=== PATIENT | female | born 1935 | race Caucasian/White ===

== ENCOUNTER → 2018-05-27 | Outpatient (CLI) | payer MEDICARE, OTHER ==
[~2018-05-27] MED LIST: ASPIR-LOW81 MG PO; ASPIRIN E.C. 8181 MG PO; COZAAR 50MG50 MG/TAB PO; EPA FISH OIL1000 MG PO; GEMCOR600 MG PO; HCTZ 25MG25 MG PO; HCTZ12.5TAB PO; INDERAL40 MG PO; LOW DOSE ASPIRI81 MG PO; LUTEIN PO; MINIPRESS; ONE DAILY1 TA1 PO; PRILOSEC 20MG20 MG PO; SYNTHROID0.05 MG/TA PO; ZOCOR 20MG20 MG PO
== END ==
LOC: MC.RAD 08:57
DX: Z12.31 Encounter for screening mammogram for malignant neoplasm of breast (principal)

== ENCOUNTER → 2021-09-05 | Outpatient (CLI) | payer MEDICARE, OTHER | LOC: ZCOL.LAB 17:25 | DX: L97.519 Non-pressure chronic ulcer of other part of right foot with unspecified severity (principal) ==

== ENCOUNTER → 2021-09-05 | Outpatient (CLI) | payer MEDICARE, OTHER | LOC: ZCOL.LAB 17:23 | DX: L97.119 Non-pressure chronic ulcer of right thigh with unspecified severity (principal) ==

== ENCOUNTER → 2022-04-19 | Outpatient (CLI) | payer MEDICARE, OTHER | LOC: COL.RAD 09:53 | DX: I71.4 Abdominal aortic aneurysm, without rupture (principal); K43.9 Ventral hernia without obstruction or gangrene | CPT/HCPCS: Q9967 ==

== ENCOUNTER 2023-05-09 17:30 | Inpatient (IN) | payer MEDICARE, OTHER ==
[~2023-05-09] VITALS: Ht 162.5 cm; Wt 79.8 kg
[~2023-05-09 17:30] MED LIST changes: +ALDACTONE 25MG25 M1 PO; +DIOVAN320 MG PO; +EPA FISH OIL1 SGL PO; -EPA FISH OIL1000 MG PO; -HCTZ12.5TAB PO; -LUTEIN PO; +LUTEIN20 M1 PO; +MASON NATURAL2000 IU PO; +MICROZIDE12.5 MG PO; +NORVASC 5MG5 MG/TAB PO; -ONE DAILY1 TA1 PO; +ONE-A-DAY ESSE1 EACH PO; +SYNTHROID0.088 MG/T PO; +ULTRAM 50MG TAB50 MG PO; +ZYLOPRIM 100MG100 MG PO; +[UNRECOGNIZED DRUG - OTHER] PO
[2023-05-09 18:18] LABS: URINE APPEARANCE Cloudy (CLEAR/HAZY); URINE BLOOD TRACE-INTACT (NEGATIVE); URINE COLOR Amber (YELLOW); URINE GLUCOSE Negative (NEGATIVE); URINE KETONE TRACE (NEGATIVE); URINE NITRATE Negative (NEGATIVE); URINE PROTEIN(semi-quant) 1+ (NEGATIVE)
[2023-05-09 18:20] LABS: MUCOUS Present (NOT PRESENT); SQUAMOUS EPITHELIAL 0-2 /hpf (0-10); URINE BACTERIA Many /hpf (NONE SEEN); URINE RBC 0-2 /hpf (0-2)
[2023-05-09] MEDS ORDERED: LASIX 40MG TABL40 MG PO (18:36)
[2023-05-09] MEDS ORDERED: COLACE 100100 MG/CAP PO (18:37)
[2023-05-09] MEDS ORDERED: DULCOLAX TAB5 MG PO (18:38)
[2023-05-09] MEDS ORDERED: ANTI-DIARRHEAL2 MG PO (18:39)
[2023-05-09 19:42] LABS: HEMATOCRIT 25.3 % (37.0-47.0); HEMOGLOBIN 8.1 g/dl (12.5-16.0); MEAN CELL VOLUME 108 fl (80.0-100.0); MEAN CORPUSCULAR HEMOGLOBIN 34 pg (27-31); MEAN CORPUSCULAR HGB CONC 32 g/dl (33.0-37.0); MEAN PLATELET VOLUME 10.6 fl (7.4-10.4); PLATELET COUNT 75 K/mm3 (130-400); RED BLOOD COUNT 2.35 M/mm3 (4.10-5.30)
[2023-05-09 19:52] LABS: BAND 18 % (0-10); LYMPHOCYTE 1 % (20.0-51.0); METAMYELOCYTE 2 % (0-0); NEUTROPHILS 77 % (42.0-75.2); PLATELET ESTIMATE DECREASED (NORMAL)
[2023-05-09 19:53] LABS: ANISOCYTOSIS 2+
[2023-05-09 20:05] LABS: ALBUMIN 1.9 gm/dL (3.4-4.8); BILIRUBIN,TOTAL 2.1 mg/dL (0.2-1.2); CALCIUM 8.1 mg/dL (8.4-10.2); CREATININE, serum 2.17 mg/dL (0.57-1.11); POTASSIUM 3.8 mmol/L (3.5-4.5); TOTAL PROTEIN 6.4 gm/dL (6.2-8.1)
[2023-05-09 20:13] LABS: ARTERIAL BLD GAS O2 SATURATION 96.9 % (92-100); ARTERIAL BLD GAS TCO2 CT 24.4; ARTERIAL BLOOD GAS BASE EXCESS 0.4 (-2-2); ARTERIAL BLOOD GAS HCO3 23.4 meq/L (22-26); ARTERIAL BLOOD GAS PCO2 31.6 mmHg (35-45); ARTERIAL BLOOD GAS PO2 86.9 mmHg (80-100); ARTERIAL BLOOD GAS pH 7.49 (7.35-7.45)
--- NOTE | 2023-05-09 23:05 | NUR ---
PATIENT ARRIVED TO MEDICAL FLOOR FROM ED VIA BED.
[2023-05-09 23:29] VITALS: BP 97/83; PULSE 107; TEMP 100.3
--- NOTE | 2023-05-09 23:29 | NUR ---
PATIENT IS RESTING IN BED WITH EYES OPEN. PATIENT IS NOT ALERT AND ORIENTED. ADMISSION INTAKE COULD NOT BE OBTAINED RELATED TO AMS. ADMISSION ASSESSMENT COMPLETED. DIALYSIS CATH NOTED TO RIGHT CHEST. CDI. IV TO LEFT WRIST. CDI. REDNESS AND ECCYMOSIS NOTED TO SACRAL AREA, NO OPEN AREAS NOTED. PITTING +3 EDEMA NOTED TO BLE AND FEET. BOTH ANKLES HAVE SOME CRACKING NOTED. THERE ARE FOAM PADS TO BOTH ANKLES. CALL LIGHT WITHIN REACH.
[2023-05-10] VITALS (13 sets, daily range): BP systolic 107–135; BP diastolic 56–91; PULSE 92–117; TEMP 97.3–98.8
--- NOTE | 2023-05-10 00:21 | NUR ---
MOSS INSERTED PER PHYSICIAN ORDERS. URINE IS DARK MOHAN IN COLOR. PATIENT TOLERATED PROCEDURE WELL. 24 HOUR URINE SAMPLE STARTED AT 0020.
--- NOTE | 2023-05-10 04:32 | NUR ---
PATIENT IS STILL NOT ALERT OR ORIENTED. RESTING IN BED WITH EYES OPEN. VSS. MOSS DRAINING DEPENDENTLY WITH DARK MOHAN URINE NOTED. SCDS ON. CALL LIGHT WITHIN REACH.
[2023-05-10 06:47] LABS: MEAN CELL VOLUME 105 fl (80.0-100.0); MEAN CORPUSCULAR HGB CONC 33 g/dl (33.0-37.0); PLATELET COUNT 81 K/mm3 (130-400); RED BLOOD COUNT 2.25 M/mm3 (4.10-5.30); REDCELL DISTRIBUTION WIDTH-CV 17.5 % (11.5-14.5)
[2023-05-10 06:54] LABS: HEMATOCRIT 23.7 % (37.0-47.0); HEMOGLOBIN 7.9 g/dl (12.5-16.0); MEAN CORPUSCULAR HEMOGLOBIN 35 pg (27-31)
[2023-05-10 06:59] LABS: ALBUMIN 1.6 gm/dL (3.4-4.8); BILIRUBIN,TOTAL 1.9 mg/dL (0.2-1.2); CALCIUM 7.7 mg/dL (8.4-10.2); CREATININE, serum 2.13 mg/dL (0.57-1.11); TOTAL PROTEIN 5.5 gm/dL (6.2-8.1)
[2023-05-10 07:55] LABS: BAND 20 % (0-10); LYMPHOCYTE 1 % (20.0-51.0); NEUTROPHILS 78 % (42.0-75.2)
[2023-05-10 07:59] LABS: ANISOCYTOSIS 1+; PLATELET ESTIMATE DECREASED (NORMAL)
--- NOTE | 2023-05-10 11:04 | NUR ---
magnaflux operator met with Patient at [facility] to conduct Care Managmeny Assessment and discuss discharge planning. Patient presented with eyes open and was unresponsive to prompts from SW. LISBETH contacted Patient's , Jonah to complete assessment. Jonah reports that Patient continues to be established with PCP Dr. Martinez and [facility] and [facility] for insurance. Patient recently discharged from SNF with [facility]. [facility] was not fully established prior to admission. Jonah reports that Patient was ambulating with Walker when discharged from AV and was told that Patient had a fever. Jonah reports that Patient returned home and declined with ADL/IADLs as the fever continued. Jonah states that he intends Patient to recover with treatment for UTI and discharge home with HH through [facility]. Jonah states that if Patient is recommended for SNF, he would like Patient to return to [facility]. Discharge Plan: Pending medical and PT/OT recommendations.
[2023-05-10 11:27] LABS: COLLECTION METHOD CATHETER
--- NOTE | 2023-05-10 12:04 | NUR ---
PATIENT GRUNTING IN BED UPON ENTERING ROOM. PATIENT IS LAYING IN BED AWAKE BUT COMPLETELY DISORIENTED AND UNABLE TO ANSWER ANY QUESTIONS OR FOLLOW COMMANDS. MORNING MEDICATIONS HELD DUE TO PATIENTS INABILITY TO SWALLOW PILLS AT THIS TIME. MOSS CATHETER DRAINING CLOUDY YELLOW URINE, [address] BED ALARMS IN PLACE. PATIENTS FAMILY HAS BEEN UPDATED ON POC VIA PHONE CALL. WILL CONTINUE TO MONITOR.
[2023-05-11] VITALS (12 sets, daily range): BP systolic 116–151; BP diastolic 52–90; PULSE 112–120; TEMP 98–98.7
[2023-05-11 01:42] LABS: URINE TOTAL VOLUME - 24 HRS 350 mL/24 hr
[2023-05-11 01:43] LABS: PROTEIN, TOTAL URINE random 55 mg/dL
--- NOTE | 2023-05-11 08:11 | NUR ---
ASSESSMENT COMPLETE FOR SENIOR MANUFACTURING TECHNICIAN. PT MOANING IF SHE WAS IN SEVERE PAIN. PROVIDER CALLED ABOUT PT'S PAIN AND ELEVATED HR. 0.25MG DILAUDID ORDERED AND GIVEN. PAIN MEDICATION DIDN'T SEEM TO HELP MUCH, HOWEVER DO TO PT'S AMS AND VITAL SIGNS, DECISION MADE TO HOLD STRONGER PAIN MEDS AT THIS TIME. PT HAD SOME INCONTINENCE OF BOWEL A COUPLE OF TIME THIS SHIFT. PT ALSO TRIED TO REMOVE HER CATHETER AND WAS CONSTANTLY REMOVING HER NASAL CANNULA. PT CHECKED ON OFTEN. 24 HR URINE COMPLETED AND SENT TO LAB. CALL LIGHT WITHIN REACH.
[2023-05-11 08:13] LABS: MEAN CELL VOLUME 104 fl (80.0-100.0); MEAN CORPUSCULAR HGB CONC 34 g/dl (33.0-37.0); MEAN PLATELET VOLUME 11.3 fl (7.4-10.4); PLATELET COUNT 88 K/mm3 (130-400); RED BLOOD COUNT 2.38 M/mm3 (4.10-5.30); REDCELL DISTRIBUTION WIDTH-CV 17.4 % (11.5-14.5)
[2023-05-11 08:24] LABS: HEMATOCRIT 24.7 % (37.0-47.0); HEMOGLOBIN 8.3 g/dl (12.5-16.0); MEAN CORPUSCULAR HEMOGLOBIN 35 pg (27-31)
[2023-05-11 08:25] LABS: CREATININE, serum 1.41 mg/dL (0.57-1.11)
[2023-05-11 08:26] LABS: ALBUMIN 1.5 gm/dL (3.4-4.8); CALCIUM 7.8 mg/dL (8.4-10.2); CREATININE, serum 1.43 mg/dL (0.57-1.11); POTASSIUM 3.9 mmol/L (3.5-4.5)
[2023-05-11 08:52] LABS: ANISOCYTOSIS 1+; BAND 7 % (0-10); EOSINOPHIL 1 % (0-4); LYMPHOCYTE 2 % (20.0-51.0); NEUTROPHILS 87 % (42.0-75.2); PLATELET ESTIMATE DECREASED (NORMAL)
--- NOTE | 2023-05-11 09:20 | NUR ---
PATIENT LAYING IN BED MOANING IN PAIN AND GRABBING L HIP. MORNING MEDICTIONS GIVEN PER eMAR. UNABLE TO GIVE ORAL MEDICATIONS AND FOOD/WATER DUE TO PATIENTS INABILITY TO FOLLOW COMMANDS AT THIS TIME. PATIENT IS RESPONDING TO QUESTIONS BUT NOT ORIENTED AT THIS TIME. ATTEMPTED TO MAKE PATIENT MORE COMFORTABLE BY REPOSITIONING. THIS RN SPOKE TO THE PATIENTS DAUGHTER ON THE PHONE THIS MORNING AND SHE NOTIFIED ME THAT PATIENT HAD FALLEN IN FEBRUARY AND HER HIP PAIN HAS BEEN WORSE SINCE THEN. SANDRA HEALY NOTIFIED. PATIENT HAS BED ALARMS IN PLACE. WILL CONTINUE TO MONITOR.
[2023-05-12] VITALS (14 sets, daily range): BP systolic 98–155; BP diastolic 36–86; PULSE 96–147; TEMP 97.5–98.8; O2SAT 67–92
--- NOTE | 2023-05-12 05:00 | NUR ---
ASSESSMENT COMPLETE FOR CHIEF ACCOUNTING OFFICER. PT DIDN'T MOAN VERY MUCH TONIGHT. WHEN ASKED IF SHE WAS IN PAIN, PT WOULD SAY NO (ONE OF ONLY THREE THINGS SHE ANSWERED ALL NIGHT. PT PULLED OUT HER IV AT THE BEGINNING OF THE SHIFT. NEW IV PLACED TO UPPER RIGHT INNER ARM. BRISA COVERING SITE TO PROTECT. PT ALSO CONTINUED PULLING OFF HER OXYMASK, PULLING OFF HER GOWN AND PULLING AT HER MOSS CATHETER OFTEN. PT CHECKED ON OFTEN TO ENSURE PT HAS HER OXYMASK ON (OR RE-PUT ON), REMIND HER NOT TO PULL OUT HER MOSS, ETC. CALL LIGHT WITHIN REACH.
[2023-05-12 07:31] LABS: MEAN CELL VOLUME 106 fl (80.0-100.0); MEAN CORPUSCULAR HGB CONC 33 g/dl (33.0-37.0); MEAN PLATELET VOLUME 11.2 fl (7.4-10.4); PLATELET COUNT 105 K/mm3 (130-400); RED BLOOD COUNT 2.56 M/mm3 (4.10-5.30); REDCELL DISTRIBUTION WIDTH-CV 17.7 % (11.5-14.5)
[2023-05-12 07:42] LABS: HEMATOCRIT 27.1 % (37.0-47.0); HEMOGLOBIN 8.9 g/dl (12.5-16.0); MEAN CORPUSCULAR HEMOGLOBIN 35 pg (27-31)
[2023-05-12 07:55] LABS: ALBUMIN 1.6 gm/dL (3.4-4.8); CREATININE, serum 1.87 mg/dL (0.57-1.11); PHOSPHOROUS 3.5 mg/dL (2.3-4.7)
[2023-05-12 08:57] LABS: BAND 6 % (0-10)
[2023-05-12 09:00] LABS: NEUTROPHILS 79 % (42.0-75.2)
[2023-05-12 09:01] LABS: ANISOCYTOSIS 2+; LYMPHOCYTE 9 % (20.0-51.0); PLATELET ESTIMATE DECREASED (NORMAL)
--- NOTE | 2023-05-12 09:12 | NUR ---
Patient in pleasant mood this morning. Shift assessment complete, skin has scattered bruising of various sizes. Coccyx reddened, but blanchable. Guaze dressing to right upper chest CDI. Aguilera catheter intact and draining tea colored/clear urine at this time. Oxygen mask placed back on patient due to patient taking it off. Mouth noted to be dry and cracking with a darkened patch on the tongue, oral care provided with water and sponge. Mouth moisterizure applied. Patient unable to follow swallow command at this time, and patient did not tolerate HOB being elevated enough to drink water/take meds safely. Patient grimaced and yelled out in pain when HOB attempted to elevate. PRN Dilaudid administered. Patient noted to be reaching out into air. This nurse asked if patient sees something and patient stated, "a bird." Patient resting in bed at this time with fall precautions in place and call light in reach. Heel protectors on. All needs met at this time, staff will continue repositioning frequently.
--- NOTE | 2023-05-12 11:23 | NUR ---
Patient improved since this morning. Dilaudid effective in pain management. Patient tolerated bed bath and repositioning well. Still unable to tolerate sips of water without coughing, oral care provided. TRI Kuhn updated on patient condition. Patient alert to self, city, month, and situation, required orientation to day and location of hospital. Patient able to remember 's name today. Patient kept stating she sees bugs everywhere. New lidocain patches placed on lower back and left hip. Still awaiting ST consult at this time. Patient currently resting in bed with HOB elevated and fall precautions in place. at bedside.
--- NOTE | 2023-05-12 14:55 | NUR ---
Patient continues to be alert to self, situation, and month. Sips of Nepro supplement shake attempted per TRI Kuhn suggestion. HOB elevated 90 degrees. Patient unable to bring fluid up through straw, and unable to drink from cup due to not following cues. Patient coughed with minimal fluid amount reaching mouth. Tolerated applesauce well with no coughing, but declined more bites after 3-4 spoonfuls of applesauce. PRN Dilaudid administered again to manage pain after noting facial grimacing. Patient curretly in bed with HOB elevated 45 degrees and fall precautions in place.
--- NOTE | 2023-05-12 23:45 | NUR ---
ASSESSMENT COMPLETE FOR ORACLE APPLICATION ARCHITECT. PT SEEN POINTING AT SOMETHING IN THE DISTANCE. PT STATED, "SHE'S NOT TURN THAT OFF!" I ASKED THE PT, "SHE'S NOT TURNING WHAT OFF? PT STATED, "THAT FANCY STUFF." PT PULLED OFF A COUPLE OF HER TELE LEADS. LEADS REPLACED. PT CONTINUED TO TAKE OFF HER O2 MASK. PT CHECKED ON OFTEN TO ENSURE SHE KEEPS HER MASK ON. PT ALSO CONTINUES TO REMOVE HER GOWN. GOWN REPLACE. AROUND 2230HRS, THE AID AND I WENT IN TO REPOSITION THE PT. TELEMETRY CALLED, STATING THE PT'S HEART RATE HAD GONE UP INTO THE 160'S AND PT LOOKED IF SHE WAS IN A-FIB W/ RVR. PROVIDER CONTACTED. EKG ORDERED. EKG CONFORMED A-FIB W/ RVR. PROVIDER CALLED BACK WITH REPORT. ORDER TO CONSULT CARDIOLOGY PLACED. ON-CALL PARA OPERATOR CALLED. AMIO BOLUS AND DRIP ORDERED AND ORDER GIVEN TO TRANSFER PT TO ICU. REPORT CALLED TO RECEIVING EARLY CHILDHOOD WORKER. PT TRANSFERED VIA HOSPITAL BED TO ICU. PT'S INFORMED OF PT'S CONDITION AND TRANSFER.
--- NOTE | 2023-05-12 23:46 | NUR ---
PT ARRIVED TO ICU VIA BED FROM MEDICAL FLOOR. PT HOOKED UP TO ICU CRM AND FULL ASSESSMENT DONE. PT IS ALERT BUT NOT ORIENTED DUE TO ALTERED MENTAL STATUS. FOLLOWS VERBAL COMMANDS AND TURNS HEAD AND OPENS EYES SPONTANEOUSLY. PT IS NOT ORIENTED ENOUGH TO GO OVER MED LIST AT THIS TIME.
[2023-05-13] VITALS (1030 sets, daily range): BP systolic 84–122; BP diastolic 48–75; PULSE 90–145; TEMP 97.1–98.5; O2SAT 74–100
--- NOTE | 2023-05-13 00:03 | NUR ---
ROXANNE GEE CONTACTED DR. CALDERON FOR PTS NEW ONSET AFIB RVR. NEW ORDERS RECEIVED OVER THE PHONE FROM DR. CALDERON FOR AN AMIO 150 MG BOLUS TO BE GIVEN OVER 30 MINUTES THEN TO START AN AMIO DRIP AT 1MG/MIN FOR A DURATION OF [address] CALDERON ALSO MENTIONED THAT IF THE PATIENT BECAME UNSTABLE AND NEEDED FURTHER CARDIAC CARE THE PATIENT SHOULD BE TRANSFERRED.
[2023-05-13 06:10] LABS: MEAN CELL VOLUME 107 fl (80.0-100.0); MEAN CORPUSCULAR HGB CONC 32 g/dl (33.0-37.0); MEAN PLATELET VOLUME 11.8 fl (7.4-10.4); PLATELET COUNT 72 K/mm3 (130-400); RED BLOOD COUNT 2.74 M/mm3 (4.10-5.30); REDCELL DISTRIBUTION WIDTH-CV 17.8 % (11.5-14.5)
[2023-05-13 06:18] LABS: HEMATOCRIT 29.3 % (37.0-47.0); HEMOGLOBIN 9.4 g/dl (12.5-16.0); MEAN CORPUSCULAR HEMOGLOBIN 34 pg (27-31)
[2023-05-13 06:28] LABS: ALBUMIN 1.6 gm/dL (3.4-4.8); CALCIUM 7.7 mg/dL (8.4-10.2); CREATININE, serum 2.16 mg/dL (0.57-1.11); MAGNESIUM 2.1 mg/dL (1.6-2.6); PHOSPHOROUS 4.1 mg/dL (2.3-4.7); POTASSIUM 4.3 mmol/L (3.5-4.5)
[2023-05-13 07:00] LABS: BAND 4 % (0-10); LYMPHOCYTE 9 % (20.0-51.0); NEUTROPHILS 82 % (42.0-75.2)
[2023-05-13 07:01] LABS: ANISOCYTOSIS 1+; PLATELET ESTIMATE DECREASED (NORMAL)
[2023-05-13 07:02] LABS: HYPOCHROMIA 1+
--- NOTE | 2023-05-13 09:10 | NUR ---
Initial visit; Patient thanked Physician Office Secretary for offering comfort and prayer. Physician Office Secretary prayed for God's immediate healing of Codi's mind, body and spirit.
--- NOTE | 2023-05-13 10:37 | NUR ---
LISBETH briefly met with pt, her ,Jonah and daughter, Heather Davidson @ the bedside this morning. and daughter have a good understanding of pt's illness and care. reported pt was going to [facility], Mondays and Fridays, however, her dialysis has been placed on hold due to her infection. Pt completed 20 days of rehab at [facility] and she returned home 3 days ago, using a walker. She became ill, eventually presenting to the ER this past weekend. LISBETH learned in rounds that pt maybe be transfer to a hospital in [place] sometime today. No other concerns noted. Will continue to follow. is medically clear.
--- NOTE | 2023-05-13 16:17 | NUR ---
0700 BEDSIDE REPORT RECEIVED FROM ROXANNE CASAREZ. PT ALERT BUT NOT ORIENTED AT THIS TIME. NO IV ACCESS AVAILABLE, WILL CONTACT DR ANDREWS FOR FURTHER INSTRUCTION. HEART RHYTHYM STILL AFIB W/ RVR, RATE IN 130'S. MOSS CATHETER IN PLACE TO DEPENDENT DRAINAGE. 0800 NO PO MEDS GIVEN AT THIS TIME DUE TO AMS. SWALLOW EVAL ORDERED. [address] DICKERSON. AMIO DRIP RESTARTED. 1130 PT CONVERTED TO NSR. 1240 DILAUDID GIVEN FOR L HIP PAIN. 1406 AMIO DRIP RATE CHANGED TO 0.5 MG/MIN. PER LUCY W/ CARDIOLOGY DRIP IS TO STAY AT THIS RATE UNTIL TOMORROW AM. SWALLOW EVAL DONE, PT CLEARED TO HAVE MINCED/MOIST DIET AND MILDLY THICKENED LIQUIDS. 1614 DILAUDID GIVEN. 1630 PT'S FAMILY DOES NOT WANT TO DO ANY FURTHER PROCEDURES OR TESTING AT THIS TIME. THEY WOULD LIKE TO CONTINUE ANTIBIOTICS AND AMIO DRIP UNTIL TOMORROW MORNING.
--- NOTE | 2023-05-13 19:32 | NUR ---
This RN spoke with patient's , Jonah, and daughter, Heather. Per family, they would not like to be notified of any changes in patient's condition after 10P, no matter the severity. Family prefers they be contacted at 0730 tomorrow morning. Per family, should patient's condition deteriorate in any way, they do not want to do anything more than what is currently being done. They ask that patient be made comfortable. Family states they do not want notified before 0730 even if patient were to pass. They are comfortable with patient being released to home if that were to occur.
[2023-05-14] VITALS (1100 sets, daily range): BP systolic 99–117; BP diastolic 43–63; PULSE 62–76; TEMP 97.5–98.6; O2SAT 59–100
[2023-05-14 04:56] LABS: MEAN CELL VOLUME 106 fl (80.0-100.0); MEAN CORPUSCULAR HGB CONC 32 g/dl (33.0-37.0); MEAN PLATELET VOLUME 10.2 fl (7.4-10.4); PLATELET COUNT 106 K/mm3 (130-400); RED BLOOD COUNT 2.46 M/mm3 (4.10-5.30); REDCELL DISTRIBUTION WIDTH-CV 17.9 % (11.5-14.5)
[2023-05-14 04:58] LABS: HEMOGLOBIN 8.4 g/dl (12.5-16.0); MEAN CORPUSCULAR HEMOGLOBIN 34 pg (27-31)
[2023-05-14 05:06] LABS: ALBUMIN 1.5 gm/dL (3.4-4.8); CALCIUM 7.6 mg/dL (8.4-10.2); CREATININE, serum 2.35 mg/dL (0.57-1.11); PHOSPHOROUS 4.2 mg/dL (2.3-4.7)
[2023-05-14 05:16] LABS: BAND 2 % (0-10); EOSINOPHIL 2 % (0-4); LYMPHOCYTE 9 % (20.0-51.0); NEUTROPHILS 82 % (42.0-75.2); NUCLEATED RED BLOOD CELL 1 (0-6); PLATELET ESTIMATE NORMAL (NORMAL)
--- NOTE | 2023-05-14 05:52 | NUR ---
PT WAS MORE ORIENTED THAN LAST NIGHT, AND MORE RESPONSIVE. SHE WAS QUIET AND RESTED THROUGHOUT THE NIGHT, CHEST RISE NOTED. KEPT ON SCHEDULE WITH THE PRN DILAUDED TO MANAGE PAIN AND COMFORT. VITALS WERE STABLE, HOWEVER O2 SAT DID DROP AT ONE POINT SO O2 VIA OXYMASK TITRATED UP TO 3L. PLAN OF CARE ONGOING.
--- NOTE | 2023-05-14 11:38 | NUR ---
LISBETH visited with pt and her daughter, Heather this morning before rounds. Pt was alert, s/w confused but involved in the conversation. She stated, "I'm tired. I want to go." Pt's daughter shared that pt has decided to go comfort care. Daughter, who was tearful, shared she and pt's are in agreement given pt's complex medical condition. Daughter talked about her close relationship with pt. Sharing she retired early so she could spend time with her elderly parents. Daughter stated she and pt would go out to eat at their favorite italian resturant once a week and have margaritas. Daughter shared pt does not want to be on dialysis complaining it's not a "quality life." Family has the impression that pt will remain in the hospital until her passing. However, according to nursing staff, pt's passing is not imminent. Therefore, family ( daughter and pt's ) are waiting to speak to the attending MD re: disposition, ie. SNF vs. Hospice @ home. Will continue to follow and facilitate discharge plan as MD deems appropriate.
--- NOTE | 2023-05-14 13:00 | NUR ---
0700 BEDSIDE REPORT RECEIVED FROM ROXANNE CASAREZ. PT RESTING IN BED. VSS, ON 3L PER OXYMASK. AMIO INFUSING ORDERED TO LIJ CENTRAL LINE. MOSS CATHETER IN PLACE TO DEPENDENT DRAINAGE. BED ALARM ON FOR PT SAFETY. 1030 PT'S DAUGHTER AND IN ROOM, DECISION TO TRANSITION PT TO COMFORT CARE HAS BEEN MADE BY FAMILY AND PT. AMIO DRIP DISCONTINUED AT THIS TIME. DR ANDREWS NOTIFIED. 1200 PT TAKES OXYGEN MASK OFF FACE, STATES "IF I DON'T HAVE TO HAVE IT ON I DON'T WANT IT." OXYGEN DISCONTINUED AT THIS TIME. 1300 COMFORT CARE ORDER SET PLACED PER TELEPHONE ORDER FROM DR ANDREWS. FAMILY AT BEDSIDE.
--- NOTE | 2023-05-14 20:55 | NUR ---
TRANSFER REPORT GIVEN VIA TELEPHONE TO TIN OLIVEIRA ON [facility]
--- NOTE | 2023-05-14 21:10 | NUR ---
RECEIVED REPORT ON PATIENT FROM JD EDWARDSHERMELINDO AT 2054. PATIENT TRANSFERED TO ROOM 355 VIA ICU BED ACCOMPANIED BY JD EDWARDSBOOM. PT VERY TENSE AND MOANING WITH MOVEMENT. PT DOES NOT ANSWER QUESTIONS. ASSESSMENT COMPLETED. PRN ATIVAN AND MS GIVEN PER EMAR FOR COMFORT. CALL LIGHT WITHIN REACH.
--- NOTE | 2023-05-15 08:00 | NUR ---
PATIENT ASLEEP IN BED. CALL LIGHT WITHIN REACH. FALL PRECAUTIONS IN PLACE
--- NOTE | 2023-05-15 10:30 | NUR ---
BERTHA CONFUSED AND WORRED SHE DOESNT HAVE HER KEYS AND WALLET, PAIN MEDICATION ADMINISTERED. ORAL CARE PROVIEDED. PATIENT REPOSIIONED.
--- NOTE | 2023-05-15 13:00 | NUR ---
ORAL CARE, CHAPSTICK APPLIED. PATIENT REPOSITIONED PER FAMILY REQUEST. PATIENTS DAUGHTER AND AT BEDSIDE
--- NOTE | 2023-05-15 15:14 | NUR ---
Multi Line Claims Adjuster met with patient's daughter, Liya (ph#[phone]) to discuss discharge options. Liya advised they would like to move patient to the [facility]. SW contacted Humberto at [facility] and faxed referral. Humberto reviewed referral and advised Dr. Martinez, patient's PCP is willing to follow. Humberto advised they can admit tomorrow and has made contact with the family. LISBETH followed up with patient's daughter and at bedside and all are in agreement with discharge plan. Discharge Plan: [facility] tomorrow, 05/16/23
--- NOTE | 2023-05-15 16:20 | NUR ---
PATIENT APPEARS UNCOMFORTABLE, AND STATES SHE HAS PAIN "ALL OVER." PATIENT REPOSITIONED, ORAL CARE COMPLETED, CHAPSTICK APPLIED, PAIN MEDICATION GIVEN.
--- NOTE | 2023-05-15 22:18 | NUR ---
PT. APPEARS TO BE SLEEPING AT THE MOMENT, HAD HER GOWN PARTIALLY OFF, AND IS LAYING BENT TOWARDS HER RIGHT SIDE, WE HAVE BEEN TRYING TO STRAIGHTEN HER OUT MUCH POSSIBLE, BUT IN SPITE OF USING PILLOWS TO PROP HER UP, PT. CONTINUALLY GOES RIGHT BACK TO THE SAME POSITION, PT. DOESN'T APPEAR TO BE IN PAIN OR RESTLESS AT THE MOMENT, BUT WILL CONTINUE TO MONITOR CLOSELY, AND CAN GIVE PRN MEDS NEEDED.
--- NOTE | 2023-05-16 08:00 | NUR ---
Pt. laying in bed with family at bedside. Pt. is confused but arousable. LT. neck TLC. Pt.'s family denies needs at this time.
[2023-05-16] MEDS ORDERED: ROXANOL 20MG20 MG/ML SL (09:40)
[2023-05-16] MEDS ORDERED: TRANSDERM-0.5 MG/21 TD (09:41)
[2023-05-16] MEDS ORDERED: TYLENOL SU650 MG/SUP RC (09:41)
[2023-05-16] MEDS ORDERED: TYLENOL 500MG500 MG PO (09:41)
--- NOTE | 2023-05-16 10:30 | NUR ---
TLC to lt. IJ discontinued at this time. Pressure held to site for 5 minutes. Gauze and foam tape applied for dressing. Informed pt. and family at bed side about 30 minute flat time. Pt.'s daughter voices understanding.
--- NOTE | 2023-05-16 11:30 | NUR ---
EMS here at this time to transfer pt. to [facility] hospice. Report called to facility.
--- NOTE | 2023-05-16 16:03 | NUR ---
Elderly Sitter contacted Humberto at [facility] and confirmed they can still accept today. SW contacted [facility] and set transport time for 1130. LISBETH met with patient and daughter at bedside to provide transport time. LISBETH placed EMS forms on chart then faxed discharge orders to [facility].
== END 2023-05-16 11:30 | disposition hospice, inpatient (51) | DRG 871 ==
LOC: COL.ER 17:30 → MEDICAL 20:14 → COL.ER 20:45 → MEDICAL 20:45 → ICU 05-10 10:57 → MEDICAL 05-10 10:57 → ICU 05-12 23:30 → MEDICAL 05-12 23:44 → ICU 05-12 23:44 → MEDICAL 05-14 20:45
PROVIDERS: Nurse Practitioner Primary Care; Personal Emergency Response Attendant; ADMIT Internal Medicine Nephrology
PROC: 5A1D70Z Performance of Urinary Filtration, Intermittent, Less than 6 Hours Per Day (ICD-10-PCS; 2023-05-10)
PROC: 02HV33Z Insertion of Infusion Device into Superior Vena Cava, Percutaneous Approach (ICD-10-PCS; principal; 2023-05-13)
DX: A41.9 Sepsis, unspecified organism (principal); G93.41 Metabolic encephalopathy; N17.9 Acute kidney failure, unspecified; E87.20 Acidosis, unspecified; E87.1 Hypo-osmolality and hyponatremia; N39.0 Urinary tract infection, site not specified; M86.9 Osteomyelitis, unspecified; N18.9 Chronic kidney disease, unspecified; Z66 Do not resuscitate; I12.9 Hypertensive chronic kidney disease with stage 1 through stage 4 chronic kidney disease, or unspecified chronic kidney disease; I48.91 Unspecified atrial fibrillation; E03.9 Hypothyroidism, unspecified; D63.1 Anemia in chronic kidney disease; D69.6 Thrombocytopenia, unspecified; I25.10 Atherosclerotic heart disease of native coronary artery without angina pectoris; I07.1 Rheumatic tricuspid insufficiency; M46.44 Discitis, unspecified, thoracic region; M46.46 Discitis, unspecified, lumbar region; M10.9 Gout, unspecified; K21.9 Gastro-esophageal reflux disease without esophagitis; E78.5 Hyperlipidemia, unspecified; K59.00 Constipation, unspecified; B96.20 Unspecified Escherichia coli [E. coli] as the cause of diseases classified elsewhere; B96.1 Klebsiella pneumoniae [K. pneumoniae] as the cause of diseases classified elsewhere; Z79.890 Hormone replacement therapy; Z79.891 Long term (current) use of opiate analgesic; Z79.82 Long term (current) use of aspirin; Z88.5 Allergy status to narcotic agent; Z99.2 Dependence on renal dialysis; Z90.49 Acquired absence of other specified parts of digestive tract
CPT/HCPCS: OP; G0378; J0282; J0696; J1170; J1200; J1580; J2060; J2270; J3370; J7050; J7060; Q3014; Q5105